=== PATIENT | female | born 1960 | race Caucasian/White ===

== ENCOUNTER 2020-02-22 12:35 | Outpatient (CLI) | payer OTHER, SELFPAY ==
--- NOTE | ~2020-02-22 | CT_ITS ---
EXAMINATION: CTA brain carotid EXAM DATE: 02/22/2020 13:37 INDICATION: Headache and dizziness. Bilateral paresthesia. Vertigo. TECHNIQUE: Noncontrast head CT. Spiral CTA of the carotid arteries was performed with intravenous i njection 100 cc of Omnipaque 350. Axial, coronal, sagittal reformatted images reviewed. Additional r eformatted images created on dedicated 3-D workstation. NASCET comparable standard used to assess th e degree of arterial stenosis. Spiral CT angiogram cerebral arteries performed with the same intrave nous injection of contrast. Source images of the brain CTA transferred to dedicated workstation for 3 -D rotational image creation. Coronal, sagittal maximum intensity pixel images also reviewed. The d ose-length product (DLP) for this examination was 1557.34 mGy-cm. The exposure was tailored accordi ng to patient size, and iterative reconstruction (ASIR) was used as additional dose reduction techniq ue. There is no prior study for comparison. FINDINGS: Both common carotid arteries and internal carotid arteries are widely patent left vertebral artery is dominant. There is no carotid or vertebral basilar arterial dissection or fibromuscular d ysplasia. There are no cerebral artery aneurysms. There is symmetric cerebral artery arborization. Th e sagittal, transverse and sigmoid sinuses enhance normally, no venous sinus thrombosis. Internal cer ebral veins also enhance normally. There is no acute intraparenchymal hemorrhage. No evidence of intraparenchymal brain mass lesion. N o evidence of acute infarction. There is no mass effect or midline shift. There is no obstructive hyd rocephalus suspected. There are no extra-axial collections. There are no calvarial acute fractures. There are no areas of abnormal enhancement on the post contrast images. Incidental left thyroid lo be nodule measuring 1.2 cm. IMPRESSION: 1. No cervical arterial dissection or cerebral artery aneurysm. 2. Bilateral internal carotid artery is 0% stenosis. 3. Small incidental left thyroid lobe nodule, could consider ultrasound for risk stratification. Reviewed, dictated and finalized at location A. IMPRESSION: 1. No cervical arterial dissection or cerebral artery aneurysm. 2. Bilateral internal carotid artery is 0% stenosis. 3. Small incidental left thyroid lobe nodule, could consider ultrasound for ri sk stratification.
== END 2020-02-22 12:36 | disposition home or self-care (01) ==
PROVIDERS: Visit Provider Psychiatry & Neurology Neurology
DX: R42 Dizziness and giddiness (principal); E04.1 Nontoxic single thyroid nodule
CPT/HCPCS: 70496; 70498; Q9967